=== PATIENT | male | born 2000 | race African-American/Black ===

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

== ENCOUNTER 2019-07-30 17:45 | Emergency (ER) | payer SELFPAY ==
--- NOTE | 2019-07-30 17:59 | ER Document Report ---
ED Medical Screen (RME) - General Mode of Arrival: Ambulatory Information source: Patient TRAVEL OUTSIDE OF THE [place] IN LAST 30 DAYS: No <MERON MORRIS - Last Filed: 07/30/19 17:58> <JONATHAN CARDONA - Last Filed: 07/30/19 19:27> - General Chief Complaint: Numbness Stated Complaint: LEFT SIDED NUMBNESS Time Seen by Provider: 07/30/19 17:54 Notes: Patient states that about an hour ago he developed left-sided facial numbness that lasted for about 5 to 10 minutes and then resolved. Patient states he then developed left arm numbness that lasted for a few minutes and then resolved. Patient states that he developed entire left side numbness that has since resolved. Patient denies any headache. Patient denies any symptoms at this time. Patient does have a history of sickle cell disease as well as a previous CVA. I have greeted and performed a rapid initial assessment of this patient. A comprehensive ED assessment and evaluation of the patient, analysis of test results and completion of the medical decision making process will be conducted by additional ED providers. (MERON MORRIS) - Related Data Allergies/Adverse Reactions: No Known Allergies Allergy (Unverified 03/30/14 01:38) Past Medical History Renal/ Medical History: Denies: Hx Peritoneal Dialysis - Immunizations Immunizations up to date: Yes Hx Diphtheria, Pertussis, Tetanus Vaccination: Yes <MERON MORRIS - Last Filed: 07/30/19 17:58> Physical Exam - Neurological Neuro grossly intact: Yes Cognition: Normal [place] Coma Scale Eye Opening: Spontaneous Brenda Coma Scale Verbal: Oriented Brenda Coma Scale Motor: Obeys Commands [place] Coma Scale Total: 15 Speech: Normal Cerebellar coordination: Normal <MERON MORRIS - Last Filed: 07/30/19 17:58> - Vital signs Vitals: Pulse Resp BP Pulse Ox 89 18 131/84 H 100 07/30/19 18:36 07/30/19 18:36 07/30/19 18:36 07/30/19 18:36 Course - Laboratory Result Diagrams: 07/30/19 18:24 07/30/19 18:24 <JONATHAN CARDONA - Last Filed: 07/30/19 19:27> - Re-evaluation Re-evalutation: 07/30/19 19:26 Transfer to [facility] for higher level of care, in case of need of exchange transfusion. Fluids started in our ED. Discussed case with heme/onc at [facility], Dr. Hernandez. Pt stable, no deficits at this time. (JONATHAN CARDONA) - Vital Signs Vital signs: Temp Pulse Resp BP Pulse Ox 89 18 131/84 H 100 07/30/19 18:40 07/30/19 18:40 07/30/19 18:40 07/30/19 18:40 - Laboratory Laboratory results interpreted by me: 07/30/19 18:24 Sodium 134.7 L Chloride 97 L Total Protein 8.5 H Doctor's Discharge <MERON MORRIS - Last Filed: 07/30/19 17:58> <JONATHAN CARDONA - Last Filed: 07/30/19 19:27> - Discharge Clinical Impression: TIA (transient ischemic attack) Sickle cell anemia Qualifiers: Sickle-cell associated disorders: with unspecified crisis Qualified Code(s): D57.00 - Hb-SS disease with crisis, unspecified; D57.0 - Hb-SS disease with crisis Disposition: [facility]
[2019-07-30] MEDS ORDERED: 1/2 NORMAL SALINE 1,000 ML IV PRN (18:30)
--- NOTE | 2019-07-30 18:35 | RADIOLOGY REPORT (SQ) ---
EXAM DESCRIPTION: CHEST SINGLE VIEW COMPLETED DATE/TIME: 07/30/2019 6:10 pm REASON FOR STUDY: L side numbness COMPARISON: 03/29/2014. EXAM PARAMETERS: NUMBER OF VIEWS: One view. TECHNIQUE: Single frontal radiographic view of the chest acquired. RADIATION DOSE: NA LIMITATIONS: None. FINDINGS: LUNGS AND PLEURA: No acute infiltrates or effusions. MEDIASTINUM AND HILAR STRUCTURES: No masses. Contour normal. HEART AND VASCULAR STRUCTURES: The heart pulmonary vasculature normal. BONES: No acute findings. HARDWARE: None in the chest. OTHER: No other significant finding. IMPRESSION: NO ACUTE DISEASE. TECHNICAL DOCUMENTATION: JOB ID: [id number] 2010 [employer]- All Rights Reserved Reading location - IP/workstation name: [email or web address]
[2019-07-30 18:50] LABS: APPEARANCE,URINE CLEAR; BILIRUBIN,URINE NEGATIVE (NEGATIVE); COLOR,URINE YELLOW; GLUCOSE, URINE NEGATIVE (NEGATIVE); KETONES,URINE NEGATIVE (NEGATIVE); LEUKOCYTE ESTERASE,URINE NEGATIVE (NEGATIVE); NITRITE,URINE NEGATIVE (NEGATIVE); PROTEIN,URINE NEGATIVE (NEGATIVE); URINE SPECIFIC GRAVITY 1.006; UROBILINOGEN,URINE NEGATIVE mg/dL (<2.0)
[2019-07-30 18:52] LABS: PROTHROMBIN TIME 14.3 SEC (11.4-15.4)
[2019-07-30 18:53] LABS: PARTIAL THROMBOPLASTIN TIME 35.7 SEC (23.5-35.8)
[2019-07-30 18:57] LABS: ABSOLUTE RETICS # 0.458 10^6/uL (0.028-0.122); HEMATOCRIT 18.3 % (37.9-51.0); MEAN CORPUSCULAR HEMOGLOBIN 33.2 pg (27.0-33.4); MEAN CORPUSCULAR HGB CONC 33.9 g/dL (32.0-36.0); MEAN CORPUSCULAR VOLUME 98 fl (80-97); PLATELET COUNT 108 10^3/uL (150-450); RED BLOOD COUNT 1.87 10^6/uL (4.35-5.55); RED CELL DISTRIBUTION WIDTH 17.3 % (11.5-14.0); RETICULOCYTE COUNT (AUTO) 24.53 % (0.66-2.85); WHITE BLOOD COUNT 9.4 10^3/uL (4.0-10.5)
[2019-07-30 19:02] LABS: HEMOGLOBIN 6.2 g/dL (13.5-17.0)
[2019-07-30 19:13] LABS: ALBUMIN 4.7 g/dL (3.5-5.0); ALKALINE PHOSPHATASE 73 U/L (38-126); ANION GAP 13 (5-19); ASPARTATE AMINO TRANSFERASE 44 U/L (17-59); BILIRUBIN,DIRECT 0.1 mg/dL (0.0-0.4); BILIRUBIN,TOTAL 1.1 mg/dL (0.2-1.3); BLOOD UREA NITROGEN 10 mg/dL (7-20); CALCIUM 9.2 mg/dL (8.4-10.2); CARBON DIOXIDE 25 mmol/L (22-30); CHLORIDE 97 mmol/L (98-107); GLUCOSE 87 mg/dL (75-110); POTASSIUM 3.9 mmol/L (3.6-5.0); TOTAL PROTEIN 8.5 g/dL (6.3-8.2)
[2019-07-30 19:17] LABS: ABSOLUTE LYMPHOCYTES# (MANUAL) 1.6 10^3/uL (0.5-4.7); ABSOLUTE MONOCYTES # (MANUAL) 0.5 10^3/uL (0.1-1.4); BASOPHILS % (MANUAL) 1 % (0-2); EOSINOPHILS % (MANUAL) 0 % (0-6); LYMPHOCYTES % (MANUAL) 17 % (13-45); MONOCYTES % (MANUAL) 5 % (3-13); SEGMENTED NEUTROPHILS % (MAN) 77 % (42-78); TOTAL CELLS COUNTED 100
[2019-07-30 19:20] LABS: ANISOCYTOSIS 2+; OVALOCYTES 1+; TARGET CELLS 1+; TEAR DROP CELLS 1+
[2019-07-30 19:21] LABS: PLATELET COMMENT DECREASED
[2019-07-30 19:24] LABS: NUCLEATED RED BLOOD CELLS 46 /100 WBC (0)
[2019-07-30] MEDS ORDERED: METHYLPREDNISOLONE INJ 125 MG/2 ML SDV IV ONE (19:55)
--- NOTE | 2019-07-30 20:18 | RADIOLOGY REPORT (SQ) ---
EXAM DESCRIPTION: CT HEAD WITHOUT COMPLETED DATE/TIME: 07/30/2019 6:41 pm REASON FOR STUDY: L side numbness . History of sickle cell disease. COMPARISON: None. TECHNIQUE: Axial images acquired through the brain without intravenous contrast. Images reviewed wi th bone, brain and subdural windows. Images stored on PACS. All CT scanners at this facility use dose modulation, iterative reconstruction, and/or weight based d osing when appropriate to reduce radiation dose to as low as reasonably achievable (ALARA). [facility]: Dose Right [facility]: CareDose [facility]: Dose Right [facility]: Teradose 4D [facility]: Smart ActionX RADIATION DOSE: CT Rad equipment meets quality standard of care and radiation dose reduction techniq ues were employed. CTDIvol: 53.2 mGy. DLP: 937 mGy-cm. mGy. LIMITATIONS: None. FINDINGS: VENTRICLES: Normal size and contour. CEREBRUM: There is a focal area decreased attenuation right frontal lobe consistent edema from recent infarct No hemorrhage. No midline shift. Normal cox/white matter differentiation. No areas of low density in the white matter. CEREBELLUM: No masses. No hemorrhage. No alteration of density. No evidence for acute infarction. EXTRAAXIAL SPACES: No fluid collections. No masses. ORBITS AND GLOBE: No intra- or extraconal masses. Normal contour of globe without masses. CALVARIUM: No fracture. PARANASAL SINUSES: No fluid or mucosal thickening. SOFT TISSUES: No mass or hematoma. OTHER: No other significant finding. IMPRESSION: There is evidence of edema from acute infarct right frontal lobe. Follow-up with MRI co uld be obtained as further evaluation if clinically indicated. The findings were called to the provi aravind taking care of the patient in emergency room at 2018 hours. EVIDENCE OF ACUTE STROKE: Yes. COMMENT: Quality ID # [id number]: Final reports with documentation of one or more dose reduction techniques (e.g., Automated exposure control, adjustment of the mA and/or kV according to patient size, use of iterative reconstruction technique) TECHNICAL DOCUMENTATION: JOB ID: [id number] SC-69 2010 [employer]- All Rights Reserved Reading location - IP/workstation name: [email or web address]
--- NOTE | 2019-07-30 20:34 | ER Document Report ---
Entered by LUCY KNOTT SCRIBE 07/30/191948 Acting as scribe for:JONATHAN CARDONA MD ED Neuro Symptoms/Deficit - General Chief Complaint: S/S of Possible Stroke Stated Complaint: LEFT SIDED NUMBNESS Time Seen by Provider: 07/30/19 17:54 Mode of Arrival: Ambulatory Information source: Patient Notes: Patient is a 19-year-old male with sickle cell who presents to the emergency department today for concerns of possible CVA. 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 Patient's independent video producer from [facility] called ahead to let us know he would be coming in, stating he would like the patient stabilized and then sent to [facility]. Upon arrival here the patient has absolutely no symptoms. Patient states that he had left-sided facial numbness at home which lasted for approximately five minutes and completely resolved. Patient states he went to the shower and shortly after the shower he had complete left-sided weakness. Patient states he was sitting down when this began and remained sitting. Mom denies any speech changes or drooping of the face. The symptoms again lasted for only 5 minutes completely resolved. Patient has been getting exchange transfusions every 4 weeks for several years but has not had one since May as he was started on hydroxyurea so "they could try that". patient denies any chest pain, vision changes, nausea, headache, fevers, cough, urinary symptoms. TRAVEL OUTSIDE OF THE [place] IN LAST 30 DAYS: No - Related Data Allergies/Adverse Reactions: No Known Allergies Allergy (Unverified 03/30/14 01:38) Past Medical History - General Information source: Patient - Social History Smoking Status: Never Smoker Cigarette use (# per day): No Chew tobacco use (# tins/day): No Frequency of alcohol use: None Drug Abuse: None Lives with: Family Family History: Reviewed & Not Pertinent Patient has suicidal ideation: No Patient has homicidal ideation: No - Past Medical History Cardiac Medical History: Reports: Other - Sickle cell Neurological Medical History: Reports: Hx Cerebrovascular Accident - at age 4, no residual deficits - Immunizations Immunizations up to date: Yes Hx Diphtheria, Pertussis, Tetanus Vaccination: Yes Review of Systems - Review of Systems Constitutional: No symptoms reported. denies: Fever EENT: denies: Blurred vision, Double vision Cardiovascular: denies: Chest pain Respiratory: No symptoms reported. denies: Cough Gastrointestinal: No symptoms reported. denies: Nausea Genitourinary: No symptoms reported. denies: Dysuria Male Genitourinary: No symptoms reported Musculoskeletal: No symptoms reported Skin: No symptoms reported Hematologic/Lymphatic: No symptoms reported Neurological/Psychological: See HPI. denies: Headaches -: Yes All other systems reviewed and negative Physical Exam - Vital signs Vitals: Resp Pulse Ox 21 H 100 07/30/19 18:35 07/30/19 18:35 - Notes Notes: Physical Exam: General: Alert, appears well. HEENT: Normocephalic. Atraumatic. PERRL. Extraocular movements intact. Oropharynx clear. Neck: Supple. Non-tender. Respiratory: No respiratory distress. Clear and equal breath sounds bilaterally. Cardiovascular: Regular rate and rhythm. Abdominal: Normal Inspection. Non-tender. No distension. Normal Bowel Sounds. Back: No gross abnormalities. Extremities: Moves all four extremities. Upper extremities: Normal inspection. Normal ROM. Lower extremities: Normal inspection. No edema. Normal ROM. Neurological: Normal cognition. AAOx4. Normal speech. Cranial nerves II through XII grossly intact bilaterally. Feheot-ew-etii test intact. Psychological: Normal affect. Normal Mood. Skin: Warm. Dry. Normal color. Course - Re-evaluation Re-evalutation: 07/30/19 20:26 Labs as well as infarct with edema was discussed with Dr. Hernandez at [facility]. Started on fluids. Will be transferred for possible exchange transfusion 07/30/19 20:26 07/30/19 21:38 Patient is stable for transfer they are here to pick him up now - Vital Signs Vital signs: Temp Pulse Resp BP Pulse Ox 89 28 H 135/81 H 100 07/30/19 18:40 07/30/19 21:01 07/30/19 21:00 07/30/19 21:01 - Laboratory Result Diagrams: 07/30/19 18:24 07/30/19 18:24 Laboratory results interpreted by me: 07/30/19 07/30/19 07/30/19 18:24 18:24 18:24 RBC 1.87 L Hgb 6.2 L Hct 18.3 L MCV 98 H RDW 17.3 H Plt Count 108 L Reticulocyte # 0.458 H Retic Count (auto) 24.53 H Sodium 134.7 L Chloride 97 L Total Protein 8.5 H Valproic Acid < 10.0 L - Diagnostic Test Radiology reviewed: Reports reviewed Discharge - Discharge Clinical Impression: TIA (transient ischemic attack) Sickle cell anemia Qualifiers: Sickle-cell associated disorders: with unspecified crisis Qualified Code(s): D57.00 - Hb-SS disease with crisis, unspecified Disposition: [place] I personally performed the services described in the documentation, reviewed and edited the documentation which was dictated to the scribe in my presence, and it accurately records my words and actions.
[2019-07-30] MEDS ORDERED: ONDANSETRON HCL INJ/PF 4 MG/2 ML SDV IV ONE (20:43)
--- NOTE | 2019-07-30 21:32 | EKG REPORT ---
SEVERITY:- NORMAL ECG - SINUS RHYTHM : Confirmed by: Zaynab Justice 30-Jul-2019 21:30:52
[2019-07-30 21:48] VITALS: BP 136/82
[2019-08-02 13:24] LABS: PATH REVIEW PATHOLOGIST REVIEWED
== END 2019-07-30 22:03 | disposition short-term general hospital (02) ==
LOC: ER 17:45
DX: G45.9 Transient cerebral ischemic attack, unspecified (principal); D57.00 Hb-SS disease with crisis, unspecified; R20.0 Anesthesia of skin
CPT/HCPCS: 93005; 99285; 96374; 96375; 36415; 82962; 85025; 85610; 85730; 85045; 80053; 81001; 84484; 80164; 71045; 70450; 93010; J2930; J2405; 96361

== ENCOUNTER 2019-08-24 09:29 | Emergency (ER) | payer SELFPAY ==
--- NOTE | 2019-08-24 09:47 | ER Document Report ---
ED Medical Screen (RME) - General Chief Complaint: Arm Pain Stated Complaint: ARM PAIN Time Seen by Provider: 08/24/19 09:41 Mode of Arrival: Ambulatory Information source: Patient Notes: 19-year-old male with history of sickle cell presents complaining of left arm pain that started Thursday evening. Denies trauma. Reports he was at [facility] getting an IV infusion into the left arm and kept his left arm straight for approximately 1 hour. Denies trauma to the arm. Reports he took Motrin prior to arrival is not hurting now. No other complaints such as fever vomiting diarrhea. No obvious injury to the left arm. No erythema no swelling no warmth I have greeted and performed a rapid initial assessment of this patient. A comprehensive ED assessment and evaluation of the patient, analysis of test results and completion of the medical decision making process will be conducted by additional ED providers. Dictation of this chart was performed using voice recognition software; therefore, there may be some unintended grammatical errors. TRAVEL OUTSIDE OF THE [place] IN LAST 30 DAYS: No - Related Data Allergies/Adverse Reactions: No Known Allergies Allergy (Unverified 08/24/19 09:40) Home Medications: ASA. folic acid. iron. "kidney pill" Past Medical History - Social History Chew tobacco use (# tins/day): No Frequency of alcohol use: None Drug Abuse: None Neurological Medical History: Reports: Hx Cerebrovascular Accident - at age 4, no residual deficits Renal/ Medical History: Denies: Hx Peritoneal Dialysis - Immunizations Immunizations up to date: Yes Hx Diphtheria, Pertussis, Tetanus Vaccination: Yes Physical Exam - Vital signs Vitals: Temp Pulse Resp BP Pulse Ox 98.1 F 80 18 150/96 H 96 08/24/19 09:35 08/24/19 09:35 08/24/19 09:35 08/24/19 09:35 08/24/19 09:35 Course - Vital Signs Vital signs: Temp Pulse Resp BP Pulse Ox 98.1 F 80 18 150/96 H 96 08/24/19 09:40 08/24/19 09:40 08/24/19 09:40 08/24/19 09:40 08/24/19 09:40
[2019-08-24 10:03] LABS: ABSOLUTE RETICS # 0.223 10^6/uL (0.028-0.122); HEMATOCRIT 34.2 % (37.9-51.0); HEMOGLOBIN 11.6 g/dL (13.5-17.0); MEAN CORPUSCULAR HEMOGLOBIN 31.7 pg (27.0-33.4); PLATELET COUNT 279 10^3/uL (150-450); RED BLOOD COUNT 3.66 10^6/uL (4.35-5.55); RETICULOCYTE COUNT (AUTO) 6.07 % (0.66-2.85); WHITE BLOOD COUNT 16.4 10^3/uL (4.0-10.5)
[2019-08-24 10:22] LABS: ALBUMIN 4.7 g/dL (3.5-5.0); ALKALINE PHOSPHATASE 80 U/L (38-126); ANION GAP 10 (5-19); ASPARTATE AMINO TRANSFERASE 54 U/L (17-59); BILIRUBIN,DIRECT 0.2 mg/dL (0.0-0.4); BILIRUBIN,TOTAL 1.8 mg/dL (0.2-1.3); BLOOD UREA NITROGEN 7 mg/dL (7-20); CARBON DIOXIDE 27 mmol/L (22-30); CHLORIDE 102 mmol/L (98-107); GLUCOSE 98 mg/dL (75-110); POTASSIUM 4.1 mmol/L (3.6-5.0); TOTAL PROTEIN 8.3 g/dL (6.3-8.2)
[2019-08-24 10:30] LABS: MEAN CORPUSCULAR VOLUME 93 fl (80-97)
[2019-08-24 10:34] LABS: ABSOLUTE LYMPHOCYTES# (MANUAL) 1.8 10^3/uL (0.5-4.7); ABSOLUTE MONOCYTES # (MANUAL) 1.6 10^3/uL (0.1-1.4); BASOPHILS % (MANUAL) 1 % (0-2); EOSINOPHILS % (MANUAL) 0 % (0-6); LYMPHOCYTES % (MANUAL) 11 % (13-45); MONOCYTES % (MANUAL) 10 % (3-13); NUCLEATED RED BLOOD CELLS 4 /100 WBC (0); SEGMENTED NEUTROPHILS % (MAN) 78 % (42-78); TOTAL CELLS COUNTED 100
[2019-08-24 10:35] LABS: ANISOCYTOSIS 2+
[2019-08-24 10:36] LABS: PAPPENHEIMER BODIES PRESENT; PLATELET COMMENT ADEQUATE; POIKILOCYTOSIS 1+; SICKLE RED CELLS 1+
--- NOTE | 2019-08-24 12:46 | RADIOLOGY REPORT (SQ) ---
EXAM DESCRIPTION: VENOUS UNILATERAL UPPER COMPLETED DATE/TIME: 08/24/2019 12:38 pm REASON FOR STUDY: left arm pain COMPARISON: None. TECHNIQUE: Dynamic and static cox scale and color images acquired of the left arm venous system. Se lected spectral images acquired with additional compression and augmentation maneuvers. The contralat eral subclavian vein and internal jugular vein were also imaged. Images stored on PACS. LIMITATIONS: None. FINDINGS: INTERNAL JUGULAR VEIN: Normal phasicity, compression, augmentation. No visualized echogeni c material on cox scale. No defects on color images. Comparison opposite side normal. SUBCLAVIAN VEIN: Normal compression, augmentation. No visualized echogenic material on cox scale. No defects on color images. AXILLARY VEIN: Normal compression, augmentation. No visualized echogenic material on cox scale. No d efects on color images. BRACHIAL VEIN: Normal compression, augmentation. No visualized echogenic material on cox scale. No d efects on color images. BASILIC VEIN: Normal compression, augmentation. No visualized echogenic material on cox scale. No de fects on color images. CEPHALIC VEIN: Normal compression, augmentation. No visualized echogenic material on cox scale. No d efects on color images. OTHER: No other significant finding. CONTRALATERAL SUBCLAVIAN VEIN AND INTERNAL JUGULAR VEIN: Normal phasicity, compression and augmentation. No visualized echogenic material on cox scale. No de fects on color images. IMPRESSION: 1. NO EVIDENCE DVT OR SVT LEFT ARM. TECHNICAL DOCUMENTATION: JOB ID: [id number] [employer]- All Rights Reserved Reading location - IP[facility]workstation name: [email or web address]
--- NOTE | 2019-08-24 13:53 | ER Document Report ---
HPI - HPI Patient complains to provider of: Left arm pain Time Seen by Provider: 08/24/19 09:41 Onset: Other - 3 days Onset/Duration: Gone Quality of pain: No pain Pain Level: Denies Context: Patient states that he received an infusion 3 days ago and he had to keep his arm straight for about an hour. Patient states that he had left posterior upper arm pain. Patient states that he took Tylenol and Motrin and his pain is gone. Patient denies any fever or arm swelling. Patient denies any chest discomfort or shortness of breath. Patient denies any symptoms at this time. Associated Symptoms: Other - Left arm pain, now resolved. denies: Fever, Headache, Nausea Exacerbated by: Denies Relieved by: Denies Similar symptoms previously: No Recently seen / treated by doctor: Yes - ROS ROS below otherwise negative: Yes Systems Reviewed and Negative: Yes All other systems reviewed and negative - CONSTITUTIONAL Constitutional: DENIES: Fever, Chills - NEURO Neurology: DENIES: Weakness - CARDIOVASCULAR Cardiovascular: DENIES: Chest pain - RESPIRATORY Respiratory: DENIES: Trouble Breathing, Coughing - GASTROINTESTINAL Gastrointestinal: DENIES: Nausea - MUSCULOSKELETAL Musculoskeletal: DENIES: Extremity pain, Back Pain, Swelling - DERM Skin Color: Normal Skin Problems: None Past Medical History - General Information source: Patient - Social History Smoking Status: Never Smoker Chew tobacco use (# tins/day): No Frequency of alcohol use: None Drug Abuse: None Occupation: None Lives with: Family Family History: Reviewed & Not Pertinent Patient has suicidal ideation: No Patient has homicidal ideation: No - Medical History Medical History: Other - Sickle cell anemia Neurological Medical History: Reports: Hx Cerebrovascular Accident - at age 4, no residual deficits Renal/ Medical History: Denies: Hx Peritoneal Dialysis Surgical Hx: Negative - Immunizations Immunizations up to date: Yes Hx Diphtheria, Pertussis, Tetanus Vaccination: Yes Vertical Provider Document - CONSTITUTIONAL Agree With Documented VS: Yes Exam Limitations: No Limitations General Appearance: WD/WN, No Apparent Distress - INFECTION CONTROL TRAVEL OUTSIDE OF THE [place] IN LAST 30 DAYS: No - HEENT HEENT: Atraumatic, Normocephalic - NECK Neck: Normal Inspection, Supple. negative: Lymphadenopathy-Left, Lymphadenopathy-Right - RESPIRATORY Respiratory: Breath Sounds Normal, No Respiratory Distress - CARDIOVASCULAR Cardiovascular: Regular Rate, Regular Rhythm Pulses: Normal: Radial - MUSCULOSKELETAL/EXTREMETIES Musculoskeletal/Extremeties: MICHELLE TAVERA, Non-Tender, No Edema Notes: No tenderness to left upper arm. Course - Re-evaluation Re-evalutation: 08/24/19 Patient is completely pain-free at this time without any complaints. Labs revie wed. Patient does have leukocytosis although this is improved as compared to prior ER visits. Patient's Doppler without any findings worrisome for DVT. Will encourage outpatient follow-up as needed for any return of symptoms. - Vital Signs Vital signs: Temp Pulse Resp BP Pulse Ox 98.1 F 80 18 150/96 H 96 08/24/19 09:40 08/24/19 09:40 08/24/19 09:40 08/24/19 09:40 08/24/19 09:40 - Laboratory Result Diagrams: 08/24/19 09:50 08/24/19 09:50 Laboratory results interpreted by me: 08/24/19 08/24/19 09:50 09:50 WBC 16.4 H RBC 3.66 L Hgb 11.6 L Hct 34.2 L RDW 19.0 H Reticulocyte # 0.223 H Lymphocytes % (Manual) 11 L Abs Neuts (Manual) 12.8 H Abs Monocytes (Manual) 1.6 H Retic Count (auto) 6.07 H Total Bilirubin 1.8 H Total Protein 8.3 H - Diagnostic Test Radiology reviewed: Reports reviewed Discharge - Discharge Clinical Impression: resolved left arm pain Condition: Stable Disposition: HOME, SELF-CARE Instructions: Acetaminophen, Muscle Strain ([facility]) Additional Instructions: Return immediately for any new or worsening symptoms Followup with your primary care provider, call tomorrow to make a followup appointment Referrals: [facility] [Provider Group] - Follow up as needed
[2019-08-24 14:33] VITALS: BP 137/83
== END 2019-08-24 14:13 | disposition home or self-care (01) ==
LOC: ER 09:29
DX: M79.622 Pain in left upper arm (principal); D72.829 Elevated white blood cell count, unspecified
CPT/HCPCS: 36415; 80053; 85025; 85045; 93971; 99284